=== PATIENT | male | born 1990 | race African-American/Black ===

== ENCOUNTER 2022-08-18 20:54 | Emergency (ER) | payer OTHER ==
[2022-08-18] MEDS ORDERED: Benzocaine 20% Spray 60 ML CAN ONE (23:28)
[2022-08-19] MEDS ORDERED: Dexamethasone 10 MG/ML VIAL ONE (00:18)
== END 2022-08-19 00:25 | disposition home or self-care (01) ==
LOC: ERS 20:54
DX: J36 Peritonsillar abscess (principal); F17.210 Nicotine dependence, cigarettes, uncomplicated
CPT/HCPCS: 42700; J1100

== ENCOUNTER 2023-05-16 13:52 | Emergency (ER) | payer OTHER ==
[~2023-05-16 13:52] MED LIST: Iopamidol-370 76% 500 ML MDV (1 ML CHARGE) ONE
[2023-05-16] MEDS ORDERED: Ondansetron PF 4 MG/2 ML Vial ONE (14:31)
[2023-05-16] MEDS ORDERED: Ketorolac Tromethamine 30 MG/ML VIAL ONE (14:31)
[2023-05-16 14:44] LABS: #Monocytes 0.7 thou/uL (0.11-0.59); %Basophils 0.3 % (0.0-1.0); %Eosinophils 0.4 % (0.0-10.0); %Lymphocytes 50.5 % (21.0-51.0); %Monocytes 7.5 % (0.0-10.0); %Neutrophils 41.1 % (42.0-75.0); Hematocrit 44.4 % (42.0-52.0); Hemoglobin 16.2 g/dL (14.0-18.0); Mean Corpuscular HGB CONC 36.5 g/dL (32.0-36.0); Mean Corpuscular Hemoglobin 27.4 pg (27.0-31.0); Mean Corpuscular Volume 75.1 fl (78.0-98.0); Mean Platelet Volume 8.9 fL (7.4-10.4); Platelet Count 344 10x3/uL (130-400); RBC Distribution Width 13.8 % (11.5-14.5); Red Blood Cell (RBC) Count 5.91 mill/uL (4.70-6.10); White Blood Cell (WBC) Count 9.6 10x3/uL (4.8-10.8)
[2023-05-16 15:07] LABS: ALT (SGPT) 11 U/L (8-55); AST (SGOT) 18 U/L (5-34); Alkaline Phosphatase 76 U/L (40-110); Anion Gap 16 mmol/L (10-20); BUN (Urea Nitrogen) 22 mg/dL (8.9-20.6); Calc. Creatinine Clearance 0 mL/min (70-130); Carbon Dioxide 30 mmol/L (22-29); Chloride 91 mmol/L (98-107); Estimated GFR 62; Globulin 2.9 g/dL (2.4-3.5); Glucose 100 mg/dL (70-105); Lipase 45 U/L (8-78); Potassium 3.2 mmol/L (3.5-5.1); Protein, Total 7.9 g/dL (6.0-8.3); Sodium 134 mmol/L (136-145)
[2023-05-16 15:11] LABS: Troponin I Less than 0.010 ng/mL (< 0.028)
[2023-05-16] MEDS ORDERED: Pantoprazole 40 MG VIAL ONE (15:37)
[2023-05-16 16:26] LABS: Bacteria/HPF None Seen HPF (None Seen); Bilirubin Negative (Negative); Blood, Urine Negative (Negative); CAUTI Indications for Culture Dysuria,urgency,freq; Clarity Clear (Clear); Glucose, Urine (Dipstick) Normal (Negative); Ketone, Urine 10 mg/dL (Negative); Leukocyte Negative Leu/uL (Negative); Nitrite Negative (Negative); Protein, Urine (Dipstick) Negative (Neg-Trace); RBC/HPF 0-3 HPF (0-3); Squamous Epithelial None Seen HPF (0-3); Urobilinogen Normal mg/dL (Less than 2); WBC/HPF 0-3 HPF (0-3)
[2023-05-16 16:32] LABS: Specific Gravity, Urine 1.044 (1.002-1.036)
[2023-05-16 16:33] LABS: Urine Culture Reflex No No
== END 2023-05-16 16:46 | disposition home or self-care (01) ==
LOC: ERS 13:52
DX: K29.70 Gastritis, unspecified, without bleeding (principal); F17.210 Nicotine dependence, cigarettes, uncomplicated
CPT/HCPCS: 74177; 80053; 81001; 82550; 83690; 84484; 85025; 93005; 96374; 96375; C9113; J1885; J2405; Q9967